=== PATIENT | female | born 1940 | race Asian ===

== ENCOUNTER → 2017-12-03 | Day surgery (SDC) | payer OTHER ==
--- NOTE | 2017-12-03 08:06 | Operative Report ---
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 The risks, benefits, and alternatives to surgery were discussed at length with the patient. Informed consent was obtained. The patient was brought to the operating room where the left eye was prepped and draped in the normal sterile fashion. A speculum was placed on the left eye with good exposure. A stab incision was made using a paracentesis blade. Intracameral lidocaine was placed. Viscoelastic was used to form the anterior chamber. A clear corneal incision was made using keratome blade. A continuous curvilinear capsulorrhexis was made using a cystotome needle followed by Utrata forceps. There was no extension of the rhexis. Hydrodissection was performed using balanced salt solution. The cataract was removed using a stop and chop technique. Residual cortex was removed using coaxial irrigation and aspiration. The capsule was polished using irrigation and aspiration and the posterior capsule was cleaned using a balanced salt solution jet. There was no residual lens material inside the eye. The capsular bag was reformed using viscoelastic. There was noted some zonular instability inferiorly. A capsular tension ring was placed in the bag without complication. An intraocular lens ZCBOO of power 21.5 was verified and confirmed. It was loaded into an injector and injected into the eye. The lens was placed entirely within the capsular bag. Viscoelastic was evacuated using irrigation and aspiration. The wounds were stromally hydrated and the eye filled to physiologic pressure using balanced salt solution. Intracameral cefuroxime was placed. Speculum was removed and a shield was placed on the eye. The patient was brought to the recovery area without incident. Instructions were given to follow-up the next day for routine postoperative care.
== END ==
LOC: EDSEX 01:02 → STS 01:02
DX: H25.89 Other age-related cataract (principal); H40.1420 Capsular glaucoma with pseudoexfoliation of lens, left eye, stage unspecified
CPT/HCPCS: J2250; V2632